=== PATIENT | male | born 1945 | race Caucasian/White ===

== ENCOUNTER → 2018-06-28 14:00 | Outpatient (CLI) | payer MEDICARE, OTHER, SELFPAY ==
--- NOTE | 2018-06-28 | DI.RAD.S_ITS ---
PROCEDURE: FL BARIUM SWALLOW INDICATIONS: CHEST PAIN COMPARISON: None. FINDINGS: Function: There is normal esophageal peristalsis. There was mild spontaneous and elicited gastroesophageal reflux. Morphology: Air-contrast images demonstrate normal mucosal morphology. Single contrast views show no esophageal strictures, extrinsic mass effects, or diverticula. Limited images of the stomach demonstrate normal appearance. IMPRESSION: Mild spontaneous and elicited gastroesophageal reflux at several points over the course of the examination but no esophageal inflammation or erosion is found in no mass or stricture is identified. Dictated by: Marco Hernandez M.D. on 06/28/2018 at 15:03 Approved by: Marco Hernandez M.D. on 06/28/2018 at 15:04
== END ==
PROVIDERS: Family Provider Family Medicine Geriatric Medicine; PCP Family Medicine Geriatric Medicine; Visit Provider Family Medicine Geriatric Medicine
DX: K21.9 Gastro-esophageal reflux disease without esophagitis (principal); R07.9 Chest pain, unspecified
CPT/HCPCS: 74220